=== PATIENT | female | born 1975 | race Two or more races ===

== ENCOUNTER 2023-12-18 10:10 | Outpatient (RCR) | payer MEDICAID, SELFPAY ==
--- NOTE | 2023-12-18 11:13 | PT.ODS1RPT ---
PT OP Progress/Discharge Note Date of Service: 12/18/23 Progress Note/DC Note Progress Note/Discharge Note: DC Note Patient Information Visit Reasons: Back pain Service Continue Service or Discharge: Discharge Discharge Date: 12/18/23 Status Subjective: Continued high LBP, not much change since starting therapy. Objective: Trunk AROM FB: 16 from floor with LBP Extension: unable TTP: moderate of L/S paraspinals Assessment: Pt has attended 6 Rx sessions with poor response to therapy interventions with more LBP and R LE pain. Poor response to prone extension progression with increased R LE pain. Pt is not progressing with goals due to continued LBP consistent with lumbar disk bulges. Plan: D/C with [facility]P Procedure Charges Therapeutic Exercise 30 minutes: Yes
== END 2024-01-13 23:59 | disposition home or self-care (01) ==
LOC: CPTX 10:10
PROVIDERS: PCP Family Medicine; Referring Provider Family Medicine; Visit Provider Family Medicine
DX: M54.16 Radiculopathy, lumbar region (principal); M54.31 Sciatica, right side; S39.012D Strain of muscle, fascia and tendon of lower back, subsequent encounter; S29.012D Strain of muscle and tendon of back wall of thorax, subsequent encounter; X58.XXXD Exposure to other specified factors, subsequent encounter
CPT/HCPCS: 97110